=== PATIENT | male | born 1960 | race Caucasian/White ===

== ENCOUNTER → 2019-05-28 | Outpatient (CLI) | payer BC ==
--- NOTE | 2019-05-28 09:06 | US ---
EXAMINATION TYPE: US prostate transrectal DATE OF EXAM: 05/28/2019 COMPARISON: NONE CLINICAL HISTORY: R97.20 ELEV PROSTATE SPECIFIC ANTIGEN. This examination was performed using the transrectal probe. EXAM MEASUREMENTS: Gland Size: 4.3 x 2.8 x 5.1cm Volume: 31.7 Predicted PSA: 3.8 Actual PSA (if available):4.2 Initial images of seminal vesicles are within normal limits. Prostate gland is heterogeneous in appea kareem and slightly enlarged in size. No suspicious nodules are identified. Some central calcification s are felt present. IMPRESSION: Slightly enlarged prostate gland. No suspicious nodules. Predicted PSA = volume x 0.12 ng/ml Calculated Volume = 0.5236 x L x W x H
== END ==
LOC: RADUSWWP 08:11
PROVIDERS: ATTEND Family Medicine
DX: N40.0 Benign prostatic hyperplasia without lower urinary tract symptoms (principal)
CPT/HCPCS: 76872